=== PATIENT | female | born 1980 | race Caucasian/White ===

== ENCOUNTER 2024-04-28 09:42 | Emergency (ER) | payer MEDICARE ==
[~2024-04-28] VITALS: Ht 170.2 cm; Wt 69.0 kg
[2024-04-28 09:47] VITALS: O2SAT 100
[2024-04-28 15:00] VITALS: BP 134/64; PULSE 82; RESP 16; TEMP 36.9; O2SAT 98
== END 2024-04-28 18:00 | disposition home or self-care (01) ==
LOC: ER 09:42 → EDBD 09:42 → ER 18:00
DX: R46.2 Strange and inexplicable behavior (principal); Z98.890 Other specified postprocedural states
CPT/HCPCS: 99283